=== PATIENT | male | born 2000 | race Asian ===

== ENCOUNTER 2021-02-18 22:43 | Emergency (ER) | payer SELFPAY ==
[~2021-02-18] VITALS: Ht 167.6 cm; Wt 50.0 kg
[2021-02-19 02:54] LABS: COLLECTION METHOD CLEAN CATCH
[2021-02-19 02:59] LABS: BASO # 0.1 (0.0-0.2); BASO % 0.3 % (0.0-2.0); EOS # 0.3 (0.0-0.7); EOS % 1.5 % (0-4.0); GRAN % 85.4 % (42.2-75.2); HEMATOCRIT 44.7 % (36.0-47.0); HEMOGLOBIN 14.9 g/dl (12.5-16.1); LYMPH # 1.2 (1.2-3.4); LYMPH % 6.6 % (20.0-51.0); MEAN CELL VOLUME 89 fl (80.0-95.0); MEAN CORPUSCULAR HEMOGLOBIN 30 pg (26.0-32.0); MEAN CORPUSCULAR HGB CONC 33 g/dl (33.0-37.0); MEAN PLATELET VOLUME 9.9 fl (7.4-10.4); MONO % 5.9 % (1.7-9.3); PLATELET COUNT 265 K/mm3 (130-400); RED BLOOD COUNT 5.03 M/mm3 (4.20-5.60); REDCELL DISTRIBUTION WIDTH-CV 12.1 % (11.5-14.5)
[2021-02-19 03:14] LABS: ALBUMIN 4.3 gm/dL (3.5-5.0); BILIRUBIN,TOTAL 0.5 mg/dL (0.0-1.0); CALCIUM 8.8 mg/dL (8.4-10.2); CREATININE, serum 0.81 (0.66-1.25); POTASSIUM 3.7 mmol/L (3.4-5.0); TOTAL PROTEIN 8.8 gm/dL (6.4-8.2)
[2021-02-19 03:18] LABS: MUCOUS Present /lpf; PH 6 (5-8); URINE APPEARANCE Cloudy; URINE BACTERIA Rare /hpf; URINE BILIRUBIN Negative (NEGATIVE); URINE BLOOD 2+ (NEGATIVE); URINE COLOR Yellow; URINE GLUCOSE Negative (NEGATIVE); URINE KETONE Negative (NEGATIVE); URINE LEUKOCYTE ESTERASE 3+ (NEGATIVE); URINE NITRATE Negative (NEGATIVE); URINE PROTEIN(semi-quant) 2+ (NEGATIVE); URINE RBC >50 /hpf; URINE UROBILINOGEN Negative (NEGATIVE)
[2021-02-19] MEDS ORDERED: DOXYCYCLINE 10100 MG PO (05:16)
[2021-02-19 05:49] VITALS: BP 114/61; PULSE 79; TEMP 97.8
== END 2021-02-19 05:49 | disposition home or self-care (01) ==
LOC: COL.ER 22:43 → EDBD 22:44 → COL.ER 02-19 05:49
PROVIDERS: Personal Emergency Response Attendant
DX: N34.2 Other urethritis (principal)
CPT/HCPCS: J0696; J2270; J2405; J7030; Q9967

== ENCOUNTER 2021-12-12 17:09 | Emergency (ER) | payer SELFPAY ==
[~2021-12-12] VITALS: Ht 160 cm; Wt 61.4 kg
[~2021-12-12 17:09] MED LIST: DOXYCYCLINE 10100 MG PO
[2021-12-12 17:22] VITALS: BP 136/80; PULSE 66; TEMP 98.3
== END 2021-12-12 17:45 | disposition home or self-care (01) ==
LOC: COL.ER 17:09
DX: N45.1 Epididymitis (principal)
CPT/HCPCS: J0696